=== PATIENT | male | born 1965 | race Caucasian/White ===

== ENCOUNTER 2022-05-29 03:20 | Inpatient (IN) | payer OTHER ==
[~2022-05-29] VITALS: Ht 175.3 cm; Wt 112.5 kg
[2022-05-29 03:26] VITALS: BP 181/89
--- NOTE | 2022-05-29 03:39 | NUR ---
STAT EKG in triage room.
[2022-05-29] MEDS ORDERED: ASPIRIN 325 MG TAB PO ONE ×2 (03:45→04:55)
--- NOTE | 2022-05-29 03:48 | NUR ---
PT TAKEN TO BED 5
[2022-05-29 04:04] LABS: BASOPHILS # (AUTO) 0.1 K/uL (0.00-0.22); BASOPHILS % (AUTO) 0.9 % (0.0-2.0); EOSINOPHILS % (AUTO) 0.2 % (0.0-4.0); HEMATOCRIT 47.7 % (36-52); LYMPHOCYTES # (AUTO) 2.2 K/uL (2.0-11.5); LYMPHOCYTES % (AUTO) 17.5 % (20.5-51.1); MEAN CORPUSCULAR HEMOGLOBIN 30 pg (27-31); MEAN CORPUSCULAR HGB CONC 33 g/dL (33-37); MEAN CORPUSCULAR VOLUME 90.7 fL (80-94); MONOCYTES # (AUTO) 0.3 K/uL (0.8-1.0); MONOCYTES % (AUTO) 2.6 % (1.7-9.3); NEUTROPHILS # (AUTO) 10.1 K/uL (1.8-7.7); NEUTROPHILS % (AUTO) 78.8 % (42.2-75.2); PLATELET COUNT (AUTO) 257 K/uL (140-450); RED BLOOD CELL COUNT(AUTO) 5.26 MIL/uL (4.20-6.10); RED CELL DISTRIBUTION WIDTH 14.8 % (11.6-13.7); WHITE BLOOD COUNT (AUTO) 12.8 K/uL (4.8-10.8)
--- NOTE | 2022-05-29 04:50 | NUR ---
Dr. Moraes examining patient.
[2022-05-29] MEDS ORDERED: IPRATROPIUM 0.02% 0.5 MG/2.5 ML NEBU INH ONE (04:55)
[2022-05-29] MEDS ORDERED: ALBUTEROL 0.083% 2.5 MG/3 ML NEBU INH ONE (04:55)
[2022-05-29 05:00] LABS: ANION GAP 15.8 (8-16); CARBON DIOXIDE 25.9 mmol/L (21-32); CHLORIDE 104 mmol/L (98-107); CREATININE 1.3 mg/dL (0.6-1.3); GFR ARICAN-AMERICAN 74 mL/min (>90); GLUCOSE 202 mg/dL (74-106); POTASSIUM 3.7 mmol/L (3.5-5.1); SODIUM SERUM 142 mmol/L (136-145); TOTAL BILIRUBIN 0.8 mg/dL (0.0-1.0); UREA NITROGEN, BLOOD 6 mg/dL (7-18)
[2022-05-29 05:01] LABS: ALBUMIN 4.2 g/dL (3.4-5.0); ASPARTATE AMINOTRANSFERASE 87 U/L (15-37)
--- NOTE | 2022-05-29 05:08 | NUR ---
asa 324mg wasted at bedside. rosaline styles made aware.
[2022-05-29 05:21] LABS: LIPASE 154 U/L (73-393)
[2022-05-29] MEDS ORDERED: NITROGLYCERIN 0.4 MG TAB SL ONE (05:45)
--- NOTE | 2022-05-29 05:46 | NUR ---
nitroglycerin tab administered, pt stated "i dont think it worked, im nauseated and dont want anymore of it."
[2022-05-29] MEDS ORDERED: AZITHROMYCIN 500 MG in DEXTROSE 5% 250 ML IV ONE (06:20)
--- NOTE | 2022-05-29 06:22 | NUR ---
Dr. Moraes examining patient.
[2022-05-29] MEDS ORDERED: cefTRIAXone 1,000 MG VIAL ONE (06:31)
[2022-05-29] MEDS ORDERED: AZITHROMYCIN 500 MG INJ VIAL IV ONE (06:31)
--- NOTE | 2022-05-29 06:34 | NUR ---
Patient had nausea, vomiting, notified.
[2022-05-29] MEDS ORDERED: ONDANSETRON 4 MG/2 ML VIAL IVP ONE (06:35)
[2022-05-29] MEDS ORDERED: ONDANSETRON 4 MG/2 ML VIAL ONE (06:37)
[2022-05-29] MEDS ORDERED: HYDR-3298 PO (06:56)
[2022-05-29] MEDS ORDERED: METF-1139 PO (06:56)
[2022-05-29] MEDS ORDERED: ESOM20EC PO (06:56)
[2022-05-29] MEDS ORDERED: CLOM50TA PO (06:56)
[2022-05-29] MEDS ORDERED: POTASSIUM CHLORIDE 10 MEQ TABER PO PRN (07:00)
[2022-05-29] MEDS ORDERED: ACETAMINOPHEN 325 MG TAB PO PRN (07:00)
[2022-05-29] MEDS ORDERED: ALBUTEROL 0.083% 2.5 MG/3 ML NEBU INH PRN (07:00)
[2022-05-29] MEDS ORDERED: LORazepam 2 MG/ML VIAL IVP PRN (07:00)
[2022-05-29] MEDS ORDERED: MAG SULF 2000 MG/WATER PREMIX 50 ML IV PRN (07:00)
[2022-05-29] MEDS ORDERED: ZOLPIDEM 10 MG TAB PO PRN (07:00)
[2022-05-29] MEDS ORDERED: DOCUSATE SODIUM 100 MG GELCAP PO PRN (07:00)
[2022-05-29] MEDS ORDERED: ONDANSETRON 4 MG/2 ML VIAL IVP PRN (07:00)
[2022-05-29] MEDS ORDERED: MORPHINE SULFATE 2 MG/ML SYR IVP PRN (07:00)
[2022-05-29 07:05] LABS: BARBITURATE, URINE NEGATIVE ng/ml (NEG <=200)
[2022-05-29] MEDS ORDERED: DEXTROSE 50% 50 ML SYR IVP PRN (07:05)
[2022-05-29 07:06] LABS: BENZODIAZEPINE, URINE NEGATIVE ng/mL (NEG <=200); CANNABINOID, URINE NEGATIVE ng/mL (NEG <=50); COCAINE, URINE NEGATIVE ng/mL (NEG <=300); OPIATE, URINE NEGATIVE ng/mL (NEG <=2000); PHENCYCLIDINE SCREEN,URINE NEGATIVE ng/mL (NEG <=25)
--- NOTE | 2022-05-29 07:18 | NUR ---
Pt report given to Jess RAY. Transfer of care at this time.
--- NOTE | 2022-05-29 07:20 | NUR ---
Report recieved from FLOR Ríos for transfer of care.
--- NOTE | 2022-05-29 07:35 | NUR ---
Patient was given breakfast tray. Patient is sitting up eating breakfast.
[2022-05-29] MEDS: BLOOD GLUCOSE MONITORING 1 DEV DEV FS SCH ×4 (07:40→21:10)
[2022-05-29] MEDS: INSULIN LISPRO SLIDING SCALE 100 UNITS/ML VIAL SUBQ PRN ×3 (07:46→21:11)
[2022-05-29] MEDS ORDERED: LOSARTAN 50 MG TAB PO SCH (09:00)
[2022-05-29] MEDS ORDERED: LOVENOX 1MG/KG Q12H SUBQ SCH (09:00)
--- NOTE | 2022-05-29 09:02 | NUR ---
PATIENT HAS BEEN SCREENED AND CATEGORIZED MODERATE NUTRITION RISK. PATIENT WILL BE SEEN WITHIN 3-5 DAYS OF ADMISSION. REVIEWED BY RAJ PANG RD
--- NOTE | 2022-05-29 09:05 | NUR ---
Patient will be admitted to care of Dr. Sanchez. Admited to Telemetry. Will go to room 112-B. Belongings list completed. Report to ASHLEE Duncan.
--- NOTE | 2022-05-29 09:15 | NUR ---
RECEIVED REPORT FROM ER NURSE. PT ARRIVED TO MST UNIT VIA DREW @[id number]. PT IS AOX4, STABLE, NO SIGNS OF DISTRESS. IV TO LEFT AC 20G, CLEAN AND INTACT. NO FURTHER NEEDS ARE TO BE MET AT THIS TIME. WILL CONTINUE WITH CARE.
[2022-05-29] MEDS: AZITHROMYCIN 500 MG in DEXTROSE 5% 250 ML IV SCH (10:00)
[2022-05-29] MEDS: ENOXAPARIN 120 MG/0.8 ML SYR SUBQ SCH ×2 (10:00→21:00)
[2022-05-29] MEDS ORDERED: hydrALAZINE 10 MG TAB PO SCH (13:00)
[2022-05-29 16:00] VITALS: BP 142/78
[2022-05-29] MEDS ORDERED: hydrALAZINE 20 MG/ML VIAL IVP SCH (17:00)
--- NOTE | 2022-05-29 19:10 | NUR ---
ENDORSED PT TO NIGHTSHIFT NURSE FOR CONTINUITY OF CARE. PT IS STABLE, NO SIGNS OF DISTRESS. ALL NEEDS MET.
--- NOTE | 2022-05-29 19:40 | NUR ---
RECEIVED PT FROM DAY RN FOR CONTINUITY OF CARE. NO S/SX OF DISTRESS NOTED. DENIES PAIN AND SOB. ON ROOM AIR.PT IS STABLE. ALL PRECAUTIONS IN PLACE. WILL CONTINUE TO MONITOR.
[2022-05-29 20:00] VITALS: BP 145/79
--- NOTE | 2022-05-29 21:30 | NUR ---
SCHEDULED MEDICATIONS GIVEN. PT TOLERATED WELL. BLOOD SUGAR WAS 197. 2 UNIT INSULIN COVERAGE GIVEN.
[2022-05-30] VITALS: BP 138/72
[2022-05-30] MEDS ORDERED: hydrALAZINE 20 MG/ML VIAL IVP PRN (00:40)
[2022-05-30 04:00] VITALS: BP 141/89
--- NOTE | 2022-05-30 04:00 | NUR ---
VITALS ARE STABLE. NO S/SX OF DISTRESS NOTED. DENIES PAIN. ALL PRECAUTIONS IN PLACE.CALL LIGHT WITHIN REACH.WILL CONTINUE TO MONITOR.
[2022-05-30] MEDS: BLOOD GLUCOSE MONITORING 1 DEV DEV FS SCH ×4 (07:03→20:45)
--- NOTE | 2022-05-30 07:26 | NUR ---
PT ENDORSED TO DAY SHIFT RN FOR CONTINUITY OF CARE. PT IS STABLE.
--- NOTE | 2022-05-30 07:30 | NUR ---
RECEIVED REPORT FROM NAIL SETTER NURSE POC DISCUSSED. PT RESTING IN BED ON ROOM AIR WITH CHEST RISING AND FALLING EVEN AND UNLABORED. NO ACUTE S/S OF DISTRESS, ALL SAFETY MEASURES IN PLACE. CALL LIGHT WITHIN REACH.
[2022-05-30 07:36] LABS: BASOPHILS # (AUTO) 0.1 K/uL (0.00-0.22); BASOPHILS % (AUTO) 0.8 % (0.0-2.0); EOSINOPHILS # (AUTO) 0.2 K/uL (0-0.4); EOSINOPHILS % (AUTO) 1.6 % (0.0-4.0); HEMATOCRIT 45.5 % (36-52); HEMOGLOBIN 15.2 g/dL (12.0-18.0); LYMPHOCYTES # (AUTO) 3.8 K/uL (2.0-11.5); LYMPHOCYTES % (AUTO) 30.4 % (20.5-51.1); MEAN CORPUSCULAR HEMOGLOBIN 30 pg (27-31); MEAN CORPUSCULAR HGB CONC 33 g/dL (33-37); MEAN CORPUSCULAR VOLUME 90.8 fL (80-94); MONOCYTES # (AUTO) 0.9 K/uL (0.8-1.0); NEUTROPHILS # (AUTO) 7.5 K/uL (1.8-7.7); NEUTROPHILS % (AUTO) 60.2 % (42.2-75.2); PLATELET COUNT (AUTO) 221 K/uL (140-450); RED BLOOD CELL COUNT(AUTO) 5.02 MIL/uL (4.20-6.10); RED CELL DISTRIBUTION WIDTH 14.9 % (11.6-13.7); WHITE BLOOD COUNT (AUTO) 12.5 K/uL (4.8-10.8)
[2022-05-30 07:59] LABS: CARBON DIOXIDE 26.3 mmol/L (21-32); POTASSIUM 3.3 mmol/L (3.5-5.1)
[2022-05-30 08:00] VITALS: BP 112/68
[2022-05-30] MEDS: LOSARTAN 50 MG TAB PO SCH ×2 (08:51→20:50)
[2022-05-30] MEDS: ASPIRIN 81 MG TAB.CHEW PO SCH (08:51)
[2022-05-30] MEDS: ATORVASTATIN 80 MG TAB PO SCH (08:52)
[2022-05-30] MEDS: AZITHROMYCIN 500 MG in DEXTROSE 5% 250 ML IV SCH (08:52)
[2022-05-30] MEDS: ENOXAPARIN 120 MG/0.8 ML SYR SUBQ SCH ×2 (08:54→20:49)
[2022-05-30 12:00] VITALS: BP 137/87
[2022-05-30] MEDS: INSULIN LISPRO SLIDING SCALE 100 UNITS/ML VIAL SUBQ PRN ×2 (12:25→20:46)
--- NOTE | 2022-05-30 12:38 | NUR ---
DC PLANNING: PATIENT HAS AN ORDER FOR HIGHER LEVEL OF CARE FOR CARDIAC CATH, FAXED TO [facility] AND [facility]. CM TO FOLLOW Addendum: 05/30/22 at 1434 by Perla Preston RN DC PLANNING: CALLED [facility] [phone] SPOKE WITH FLORIN Ramirez PROVIDE THE AUTH FOR [facility] [id number] FOR TRANSPORT AUTH# [id number] PROVIDE THE AUTH TO NAVID AT [facility] TO FOLLOW Addendum: 05/30/22 at 1602 by Perla Preston RN DC PLANNING: RECEIVED A CALL FROM [facility] SPOKE WITH NAVID STATED THE HOSPITALIST DENIED THE CASE TO ADMITTED RECOMMENDED CARDIAC CARE TO BE DONE OUT PATIENT. NOTIFIED DR PRESTON AND DR CEDENO . CM TO FOLLOW INSIDE BARREL LATHE OPERATOR.
[2022-05-30 16:00] VITALS: BP 148/92
--- NOTE | 2022-05-30 16:57 | NUR ---
NOTIFIED DR PRESTON AND DR CEDENO REGARDING [place] REFUSING PT AND STATING HE IS STABLE ENOUGH TO FOLLOW UP OUTPATIENT.
--- NOTE | 2022-05-30 18:24 | NUR ---
ANSWERED ALL OF PTS QUESTIONS REGARDING [facility] DECLINING AND FOLLOWING UP OUTPATIENT. POC DISCUSSED WITH PT REGARDING IV ABX, AND PENDING ECHO.
--- NOTE | 2022-05-30 18:47 | NUR ---
ALL NEEDS HAVE BEEN MET THROUGHOUT THE SHIFT, NO ACUTE S/S OF DISTRESS, DENIES CHEST PAIN. ALL SAFETY MEASURES IN PLACE
--- NOTE | 2022-05-30 19:20 | NUR ---
RECEIVED ENDORSEMENT FROM RON SITE SUPERVISOR, PATIENT IN BED ALERT AND ORIENTED. PATIENT AWARE OF HIS VISIT TO THE HOSPITAL. CAN VERBALIZE NEEDS AND WANTS. PATIENT ATE 50 % OF DINNER. NO NOTED S/S OF PAIN/DISCOMFORT. NO NOTED S/S OF RESPIRATORY DISTRESS. CALL LIGHT IS WITHIN REACH, ALL NEEDS MET AT THIS TIME. SIDE RAILS UP X 2 FOR SAFETY. [email or web address]
[2022-05-30 20:00] VITALS: BP 137/85
--- NOTE | 2022-05-30 22:49 | NUR ---
IN BED WATCH TV. WAS ABLE TO TAKE MEDICATION WITHOUT INCIDENT. CALL LIGHT WITHIN REACH. SIDE RAILS UP X 2 FOR SAFETY AND COMFORT. [email or web address]
[2022-05-31] VITALS: BP 140/89
--- NOTE | 2022-05-31 00:49 | NUR ---
PATIENT REMAINS ASLEEP WITHOUT INCIDENT. NO S/S OF HYPER/HYPOGLYCEMIA. CALL LIGHT WITHIN REACH FOR ASSISTANCE AND NEEDS. SIDE RAILS UP X 2 FOR ADJUSTMENTS AND COMFORT. DENIES PAIN/DISCOMFORT AT THIS TIME. NO NOTED RESPIRATORY DISTRESS. [email or web address]
--- NOTE | 2022-05-31 01:15 | NUR ---
PATIENT REMAINS ASLEEP WITHOUT INCIDENT.DENIES PAIN/DISCOMFORT AT THIS TIME. NO NOTED RESPIRATORY DISTRESS. [email or web address]
--- NOTE | 2022-05-31 03:25 | NUR ---
PATIENT REMAINS ASLEEP WITHOUT INCIDENT. CALL LIGHT WITHIN REACH FOR ASSISTANCE AND NEEDS. SIDE RAILS UP X 2 FOR ADJUSTMENTS AND COMFORT. DENIES PAIN/DISCOMFORT AT THIS TIME. NO NOTED RESPIRATORY DISTRESS. [email or web address]
[2022-05-31 04:00] VITALS: BP 155/91
[2022-05-31] MEDS: BLOOD GLUCOSE MONITORING 1 DEV DEV FS SCH ×2 (06:35→11:23)
--- NOTE | 2022-05-31 07:06 | NUR ---
ENDORSED PATIENT CARE TO JEMAL ROSADO (REGISTRY), PATIENT WAS STABLE DURING SHIFT REPORT. [email or web address]
[2022-05-31 07:16] LABS: BASOPHILS # (AUTO) 0.1 K/uL (0.00-0.22); BASOPHILS % (AUTO) 1.2 % (0.0-2.0); EOSINOPHILS # (AUTO) 0.3 K/uL (0-0.4); EOSINOPHILS % (AUTO) 3.3 % (0.0-4.0); HEMATOCRIT 44.5 % (36-52); HEMOGLOBIN 15.1 g/dL (12.0-18.0); LYMPHOCYTES # (AUTO) 3.9 K/uL (2.0-11.5); LYMPHOCYTES % (AUTO) 39.8 % (20.5-51.1); MEAN CORPUSCULAR HEMOGLOBIN 31 pg (27-31); MEAN CORPUSCULAR HGB CONC 34 g/dL (33-37); MEAN CORPUSCULAR VOLUME 90.7 fL (80-94); MONOCYTES # (AUTO) 0.8 K/uL (0.8-1.0); MONOCYTES % (AUTO) 8.3 % (1.7-9.3); NEUTROPHILS # (AUTO) 4.6 K/uL (1.8-7.7); NEUTROPHILS % (AUTO) 47.4 % (42.2-75.2); PLATELET COUNT (AUTO) 200 K/uL (140-450); RED BLOOD CELL COUNT(AUTO) 4.91 MIL/uL (4.20-6.10); RED CELL DISTRIBUTION WIDTH 14.9 % (11.6-13.7); WHITE BLOOD COUNT (AUTO) 9.7 K/uL (4.8-10.8)
[2022-05-31 07:26] LABS: ANION GAP 11.3 (8-16); CARBON DIOXIDE 29.4 mmol/L (21-32); POTASSIUM 3.7 mmol/L (3.5-5.1)
[2022-05-31 08:00] VITALS: BP 136/96
[2022-05-31] MEDS: ATORVASTATIN 80 MG TAB PO SCH (09:35)
[2022-05-31] MEDS: ASPIRIN 81 MG TAB.CHEW PO SCH (09:35)
[2022-05-31] MEDS: LOSARTAN 50 MG TAB PO SCH (09:35)
[2022-05-31] MEDS: ENOXAPARIN 120 MG/0.8 ML SYR SUBQ SCH (09:36)
[2022-05-31] MEDS: AZITHROMYCIN 500 MG in DEXTROSE 5% 250 ML IV SCH (10:11)
[2022-05-31] MEDS: INSULIN LISPRO SLIDING SCALE 100 UNITS/ML VIAL SUBQ PRN (11:32)
[2022-05-31 12:00] VITALS: BP 150/94
[2022-05-31 16:00] VITALS: BP 142/87
--- NOTE | 2022-05-31 17:17 | NUR ---
Patient discharge to home with a copy of all instructions and personal belongings. Intact 20 gauge catheter removal from left arm. Identification band removal.
[2022-05-31] MEDS ORDERED: AZIT250T4 PO (17:37)
[2022-05-31] MEDS ORDERED: LIP80 PO (17:44)
[2022-05-31] MEDS ORDERED: LOSA100T2 PO (17:47)
== END 2022-05-31 17:32 | disposition home or self-care (01) | DRG 280 ==
LOC: MED 03:20 → MTU 06:59
PROVIDERS: ADMIT Family Medicine; ATTEND Family Medicine
DX: I21.4 Non-ST elevation (NSTEMI) myocardial infarction (principal); J18.9 Pneumonia, unspecified organism; N17.9 Acute kidney failure, unspecified; R65.10 Systemic inflammatory response syndrome (SIRS) of non-infectious origin without acute organ dysfunction; D72.829 Elevated white blood cell count, unspecified; F15.10 Other stimulant abuse, uncomplicated; E11.9 Type 2 diabetes mellitus without complications; I10 Essential (primary) hypertension; E78.5 Hyperlipidemia, unspecified; K21.9 Gastro-esophageal reflux disease without esophagitis; Z20.822 Contact with and (suspected) exposure to COVID-19; K44.9 Diaphragmatic hernia without obstruction or gangrene; Z87.891 Personal history of nicotine dependence; Z88.8 Allergy status to other drugs, medicaments and biological substances
CPT/HCPCS: 36415; 71045; 80048; 80053; 80305; 82948; 83605; 83690; 83735; 83880; 84484; 85025; 87040; 87081; 94640; 96365; 96375; 99291; J0360; J0456; J0696; J1650; J2405; J7060; J7613; J7644; Q0092